=== PATIENT | male | born 1990 | race Hispanic/Latino ===

== ENCOUNTER 2020-10-16 20:18 | Emergency (ER) | payer SELFPAY ==
[~2020-10-16] VITALS: Ht 170.2 cm; Wt 170.1 kg
[~2020-10-16 20:18] MED LIST: FLEXERIL10 MG PO; NORCO 5-325 TA1 EACH PO
[2020-10-16] MEDS ORDERED: HYDROCODON-ACE1 EA10 PO (22:24)
== END 2020-10-16 22:39 | disposition home or self-care (01) ==
LOC: ED 20:18
DX: S42.331A Displaced oblique fracture of shaft of humerus, right arm, initial encounter for closed fracture (principal); W00.0XXA Fall on same level due to ice and snow, initial encounter
CPT/HCPCS: 73060; 73080; 73090; 96374; 96375; 96376; 99283-25; J1170; J2405

== ENCOUNTER 2024-01-01 17:21 | Emergency (ER) | payer OTHER ==
[~2024-01-01] VITALS: Ht 170.2 cm; Wt 147.6 kg
[~2024-01-01 17:21] MED LIST changes: +HYDROCODON-ACE1 EA10 PO; +HYDROCODON-ACE1 EA11 PO; +TYLENOL EXTRA500 MG
[2024-01-01 18:45] VITALS: BP 122/74
== END 2024-01-01 18:46 | disposition home or self-care (01) ==
LOC: ED 17:21
DX: H61.22 Impacted cerumen, left ear (principal)
CPT/HCPCS: 69209; 99283

== ENCOUNTER 2025-03-13 05:38 | Emergency (ER) | payer OTHER ==
[~2025-03-13] VITALS: Ht 170.2 cm; Wt 150.0 kg
[2025-03-13 06:27] VITALS: BP 152/87
== END 2025-03-13 06:28 | disposition home or self-care (01) ==
LOC: ED 05:38
DX: H61.21 Impacted cerumen, right ear (principal)
CPT/HCPCS: 69209; 99282